=== PATIENT | female | born 1935 | race Caucasian/White ===

== ENCOUNTER → 2020-11-12 | Outpatient (CLI) | payer MEDICARE, BC ==
[~2020-11-12] MED LIST: CALAN SR240 MG PO; COZAAR100 MG PO; ECOTRIN81 MG PO; MOBIC7.5 MG PO; SYNTHROID50 MCG PO; TAMIFLU75 MG PO; VERAPAMIL ER240 MG PO; VITAMIN B-12500 MCG PO; VITAMIN D31000 UNI1 PO; ZYVOX 600 MG T600 MG PO
== END ==
LOC: HEART 5 09:12
DX: R05 Cough (principal); R06.02 Shortness of breath; R94.2 Abnormal results of pulmonary function studies
CPT/HCPCS: 94060; 94729

== ENCOUNTER → 2020-11-21 | Outpatient (CLI) | payer MEDICARE, BC | LOC: KOH-I 12:51 | DX: J84.112 Idiopathic pulmonary fibrosis (principal); R91.8 Other nonspecific abnormal finding of lung field; R91.1 Solitary pulmonary nodule | CPT/HCPCS: 71250 ==

== ENCOUNTER → 2021-07-22 | Outpatient (CLI) | payer MEDICARE, BC | LOC: KOH-I 10:08 | DX: R91.1 Solitary pulmonary nodule (principal); R91.8 Other nonspecific abnormal finding of lung field | CPT/HCPCS: 71250 ==

== ENCOUNTER → 2022-05-08 | Outpatient (CLI) | payer MEDICARE, BC | LOC: KOH-I 10:20 | DX: M54.50 Low back pain, unspecified (principal); M47.816 Spondylosis without myelopathy or radiculopathy, lumbar region; M47.817 Spondylosis without myelopathy or radiculopathy, lumbosacral region; M43.16 Spondylolisthesis, lumbar region | CPT/HCPCS: 72100 ==